=== PATIENT | male | born 1995 | race Caucasian/White ===

== ENCOUNTER 2021-07-22 18:38 | Emergency (ER) | payer SELFPAY ==
[~2021-07-22] VITALS: Ht 172.7 cm; Wt 79.5 kg
[2021-07-22] MEDS ORDERED: CEPHALEXIN500 M1 PO (22:03)
[2021-07-22] MEDS ORDERED: MUPIROCIN2% TP (22:03)
[2021-07-22 22:20] VITALS: BP 125/78
== END 2021-07-22 22:26 | disposition home or self-care (01) ==
LOC: ED 18:38
DX: S01.21XA Laceration without foreign body of nose, initial encounter (principal); Z23 Encounter for immunization; W20.8XXA Other cause of strike by thrown, projected or falling object, initial encounter
CPT/HCPCS: 90715; J0690; J1885